=== PATIENT | female | born 1970 | race Caucasian/White ===

== ENCOUNTER 2017-02-17 08:24 | Emergency (ER) | payer OTHER ==
--- NOTE | 2017-02-17 10:21 | DIAGNOSTIC IMAGING REPORT ---
PROCEDURE: CT ABDOMEN/PELVIS W/O CONTRAST INDICATION: Left flank pain. TECHNIQUE: Noncontrast axial images were obtained of the entire abdomen and pelvis with sagittal and coronal reformations. COMPARISON: None. FINDINGS: ABDOMEN: Lung base are clear. Heart size is normal. 2 mm low left pelvic calcification with mild left hydroureteronephrosis suggestive of a distal left ureteral calculus, 1 cm proximal to the UVJ. There is a punctate nonobstructing right renal calculus. 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 Liver, gallbladder, pancreas, spleen (splenule) and adrenal glands are normal. Minor atherosclerosis of the aorta. Nonspecific bowel gas pattern. PELVIS: Normal appendix. 3.0 cm left ovarian cyst. Uterus and bladder are unremarkable. No free fluid. Mild degenerative changes of the spine. IMPRESSION: 1. 2 mm low left pelvic calcification suggestive of a distal ureteral calculus with mild left hydroureteronephrosis 2. Nonobstructing right renal calculus 3. 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 3 cm left ovarian cyst. 5. Results discussed with Dr. Guzman All CT scans at this facility use dose modulation, iterative reconstruction, and/or weight-based dosing when appropriate to reduce radiation dose to as low as reasonably achievable.
--- NOTE | 2017-02-17 10:53 | ED ORDER SUMMARY ---
..... Patient: GURPREET MARTIN OrderSheet [facility] VisitID: [id number] Eduardo Fernandez [place], [place] [id number] 47y, F Registration Date/Time: 02/17/2017 ORDER SHEET Weight: 122.4 kg (stated) Allergies: ASA= "BRUISING", Sulfa Drugs GENERAL ORDERS: CBC w Diff Urgent (08:43 02/17/2017 Hetal JOHNSON) (Ack 8:44 KHoerner) (9:09 JSimbeck R.N.) CMP Urgent (08:02/17/2017 Hetal JOHNSON) (Ack 8:44 YASIRoerner) (9:09 JSimbeck R.N.) UA-Culture if indicated Urgent (:02/17/2017 Hetal JOHNSON) (Ack 8:44 YASIRoerner) (9:09 JSimbeck R.N.) Urine Urgent (08:02/17/2017 eHtal JOHNSON) (Ack 8:44 KHoerner) (9:09 JSimbeck R.N.) Lipase Urgent (08:02/17/2017 Hetal JOHNSON) (Ack 8:44 KHoerner) (9:09 JSimbeck R.N.) Amylase Urgent (08:02/17/2017 Hetal JOHNSON) (Ack 8:44 KHoerner) (9:09 JSimbeck R.N.) US Pelvic Complete w Transvag Urgent (09:19 02/17/2017 Debra Dick) (Ack 9:22 YASIRoerner) (Cancelled: Change in patient condition9:40 Debra Dick) CT Abd/Pel wo Cont Urgent (09:40 02/17/2017 Debra Dick) (Ack 9:46 YASIRoeelizaner) (10:41 JSimbeck R.N.) MEDICATION ORDERS: IV FLUIDS: IV NS : initial bolus 1000 mL (1000 mL/hr), then none - (NOW) (08:43 02/17/2017 eHtal JOHNSON) (Ack 8:49 Luly R.N.) (9:10 JSimbeck R.N.) Dilaudid IV 1 mg (HIGH ALERT MEDICATION, NOW) (08:43 02/17/2017 Hetal JOHNSON) (Ack 8:49 Luly R.N.) (9:11 Kimberly Griggs.N.) Toradol IV 30 mg (NOW) (08:43 02/17/2017 Hetal JOHNSON) (Ack 8:49 Luly Griggs.N.) (9:11 Kimberly Griggs.N.) ORDER SHEET NOTES: [Electronically signed by Theron Caballero R.N. (11:36 02/17/2017)] [Electronically signed by Cecil Guzman Dr. (07:07 02/19/2017)] [Electronically locked/signed by Theron Caballero R.N. (11:36 02/17/2017)]
--- NOTE | 2017-02-17 10:53 | ED NURSING NOTES ---
Clinical Report - Nurses [facility] [address] [place] [address] 02/17/2017 8:26 [id number] Triage time 08:33. Acuity: LEVEL 3. Chief Complaint: ABDOMINAL PAIN. Alert. No acute distress. HECTOR COMA SCORE: [place] Coma Scale: 15- eyes open spontaneously (4); best verbal response- oriented x 4 (5); best motor response- obeys commands (6). --08:41 Linette Coronado R.N. 08:02/17/17. BP: 154/88 (large adult cuff) taken on the left arm, while sitting. HR: 73. RR: 18. O2 saturation: 97% on room air. Temp: 98 F. Pain level now: 04/23. --08:41 Linette Coronado R.N. <<STRICKEN ENTRY-- 08:33 02/17/17. BP: 154/88. HR: 73. RR: 18. O2 saturation: 97% on room air. Temp: 98 F. Pain level now: 04/23. --08:41 Linette Coronado R.N. --END STRIKE>> Correction. --10:45 Theron Caballero R.N. Weight: 122.4 kg stated. Height/Length: 65 inches Per Patient. BMI: 45. --08:39 Linette Coronado R.N. Medications ALPRAZolam Oral 0.5 mg, 3x a day as needed. Amerge Oral (Tablet 2.5 mg) 1 tablet, may repeat in 4 hours x 1 as needed. --08:38 Linette Coronado R.N. Atenolol 50mg daily. Cyclobenzaprine HCl Oral (Tablet 10 mg) 1 tablet, as needed. Depakote Oral 250 mg, 2x a day. Diclofenac Oral 75mg BID. FLUoxetine HCl Oral 20 mg- 2 tabs daily . Hydrocodone-Acetaminophen Oral 7.5 mg, 4x a day. Levothyroxine Sodium Oral 100 mcg, daily. Lidoderm External 1 patch on left elbow every 12 hours , as needed. Meloxicam Oral (Tablet 15 mg) 1 tablet, as needed. Omeprazole Oral 20 mg, daily. ProAir HFA Inhalation 2 puffs, 4x a day. Prozac Oral 40mg daily. Relpax Oral (Tablet 40 mg) 1 tablet, repeat in 2 hours if needed . Simvastatin Oral (Tablet 20 mg) 1 tablet, at bedtime. Thyroxine . --08:38 Linette Coronado R.N. Topamax Oral 100 mg, 2x a day. --08:38 Linette Coronado R.N. Claritin Oral. --08:39 Linette Coronado R.N. Medication/allergy information source: the patient. --08:41 Linette Coronado R.N. Allergies ASA= "BRUISING". Sulfa Drugs.(vomiting) --08:38 Linette Coronado R.N. History Arrived by private vehicle. Historian: patient. Accompanied by family. Primary physician (Baldemar). This started today. Onset. (@0430). Describes the quality as "pain" and ( intermittent). Relates location as in the left lower quadrant and left side of the back. Treatment CHANNEL DEVELOPMENT MANAGER: (Vicodin @0430). PAST MEDICAL HX: Last normal menstrual period- November 2016. SOCIAL HX: Light tobacco smoker- less than 1/2 a pack per day. Occasional alcohol use. History of occasional drug use: marijuana. FALL RISK ASSESSMENT: Fall risk assessment completed. No fall risk identified. FUNCTIONAL ASSESSMENT: Functional assessment: no impairments noted. LEARNING NEEDS ASSESSMENT: The learning needs assessment revealed no barriers. --08:41 Linette Coronado R.N. PROBLEMS: Animal Bite. Dental Abscess. Abscess. Arthritis. Degenerative Joint Disease. Depression. Fibromyalgia. Hypertension. Migraine Headache. --08:36 Linette Coronado R.N. ADDITIONAL SURGERIES: Dilatation & Curettage. --08:36 Linette Coronado R.N. Assessment GENERAL / NEURO / PSYCH: Alert. Oriented X 4. Appears in no acute distress. Patient appears calm and cooperative. RESPIRATORY: Respirations not labored. SKIN: Skin is warm and dry. --08:41 Linette Coronado R.N. Interventions ID and allergy band on patient. To treatment room. --08:41 Linette Coronado R.N. PHYSICAL ASSESSMENT late entry -08:40. To room via wheelchair. GENERAL / NEURO / PSYCH: Alert. Oriented X 4. Appears in pain. HEENT: Mucous membranes are pink. RESPIRATORY: Respirations not labored. Breath sounds within normal limits. CVS: Capillary refill less than 2 seconds. GI / : Obesity. Abdomen soft. Abdominal tenderness (LLQ and radiates to her left low back). Bowel sounds within normal limits. No emesis noted. SKIN: Skin is warm and dry. --09:14 Theron Caballero R.N. NURSING PROGRESS NOTES 08:55 02/17/2017 Site #1 started via IV in the right hand with an 20g angiocath, with aseptic technique and good blood return; one attempt. Blood drawn: rainbow set. Labeled in the presence of the patient and sent to the lab. Saline lock flushed with 10 mL saline. --09:09 Theron Caballero R.N. 08:58 02/17/2017 Started bag #1 1000 mL IV Fluids IV NS (Saline); bolus of 1000 mL over 45 minute(s) via site #1. Allergies verified and confirmed 5 rights. IV patency established site checked: no pain, redness, or swelling flushed thoroughly pre- and post-medication administration. --09:10 Theron Caballero R.N. 08:58 02/17/2017 Toradol IVP 30 mg given over 1 minute(s) via site #1. Allergies verified and confirmed 5 rights. IV patency established. IV site checked: no pain, redness, or swelling. IV flushed thoroughly pre- and post-medication administration. IVP given by RN. --09:11 Theron Caballero R.N. 09:05 02/17/2017 Dilaudid (HYDROmorphone HCl PF) IVP 1 mg given over 1 minute(s) via site #1. Allergies verified, confirmed 5 rights and sedative warning given to the patient. IV patency established. IV site checked: no pain, redness, or swelling. IV flushed thoroughly pre- and post-medication administration. IVP given by RN. --09:11 Theron Caballero R.N. late entry -08:40. Patient gowned. Head of bed elevated. Reassurance given. Two patient identifiers checked. Call light placed in reach. Bed placed in lowest position. Brakes of bed on. Patient ready for evaluation- chart flagged. ( inspector hot forgings at the bedside). --09:14 Theron Caballero R.N. Head of bed elevated. Reassurance given. Call light placed in reach. Bed placed in lowest position. Brakes of bed on. --10:09 Theron Caballero R.N. 10:07 02/17/17. BP: 118/63. HR: 73. RR: 20. O2 saturation: 95% on room air. Pain level now: 03/23. --10:09 Theron Caballero R.N. 09:40 02/17/2017 Toradol IVP Response: no adverse reaction pain is improving. --10:40 Theron Caballero R.N. 09:40 02/17/2017 Dilaudid IVP Response: no adverse reaction pain is improving. --10:40 Theron Caballero R.N. 09:50 02/17/2017 IV Fluids IV NS Discontinued: bag #1 completed. Total amount infused: 1000 mL. IV patency established. IV site checked: no pain, redness, or swelling. IV flushed thoroughly. --10:40 Theron Caballero R.N. 10:30 02/17/17. BP: 121/57. HR: 73. RR: 20. O2 saturation: 95% on room air. --10:45 Theron Caballero R.N. DISPOSITION / DISCHARGE 11:05 02/17/2017 Site #1 removed upon discharge. Bandage applied. --11:09 Theron Caballero R.N. <<KYLEEKEN ENTRY-- Departure time: 1009. Condition at departure: improved and stable. No learning barriers present. Discharge instructions provided and reviewed with the patient. Reviewed warnings. Reviewed medication(s). Patient verbalized understanding. Written instructions provided in Chinese. The patient was discharged by the physician. She was discharged home and accompanied by inspector hot forgings. She left the Emergency Department ambulatory and via private vehicle. Solar Panel Installer driving. --11:09 Theron Caballero R.N. --END STRIKE>> Correction --11:10 Theron Caballero R.N. 11:07 02/17/17. BP: 123/61. HR: 73. RR: 20. O2 saturation: 95% on room air. Temp: 98 F (oral). Pain level now: 01/21. --11:09 Theron Caballero R.N. Departure time: 1109. Condition at departure: improved and stable. No learning barriers present. Discharge instructions provided and reviewed with the patient. Reviewed warnings. Reviewed medication(s). Patient verbalized understanding. Written instructions provided in Chinese. The patient was discharged by the physician. She was discharged home and accompanied by inspector hot forgings. She left the Emergency Department ambulatory and via private vehicle. Solar Panel Installer driving. --11:11 Theron Caballero R.N. Locked/Released at 02/17/2017 11:36 by Theron Caballero R.N.
--- NOTE | 2017-02-17 10:53 | ED NURSING NOTES ---
Clinical Report - Nurses [facility] [address] [place] [address] 02/17/2017 8:26 [id number] Triage time 08:33. Acuity: LEVEL 3. Chief Complaint: ABDOMINAL PAIN. Alert. No acute distress. HECTOR COMA SCORE: [place] Coma Scale: 15- eyes open spontaneously (4); best verbal response- oriented x 4 (5); best motor response- obeys commands (6). --08:41 Linette Coronado R.N. 08:02/17/17. BP: 154/88 (large adult cuff) taken on the left arm, while sitting. HR: 73. RR: 18. O2 saturation: 97% on room air. Temp: 98 F. Pain level now: 04/23. --08:41 Linette Coronado R.N. <<STRICKEN ENTRY-- 08:33 02/17/17. BP: 154/88. HR: 73. RR: 18. O2 saturation: 97% on room air. Temp: 98 F. Pain level now: 04/23. --08:41 Linette Coronado R.N. --END STRIKE>> Correction. --10:45 Theron Caballero R.N. Weight: 122.4 kg stated. Height/Length: 65 inches Per Patient. BMI: 45. --08:39 Linette Coronado R.N. Medications ALPRAZolam Oral 0.5 mg, 3x a day as needed. Amerge Oral (Tablet 2.5 mg) 1 tablet, may repeat in 4 hours x 1 as needed. --08:38 Linette Coronado R.N. Atenolol 50mg daily. Cyclobenzaprine HCl Oral (Tablet 10 mg) 1 tablet, as needed. Depakote Oral 250 mg, 2x a day. Diclofenac Oral 75mg BID. FLUoxetine HCl Oral 20 mg- 2 tabs daily . Hydrocodone-Acetaminophen Oral 7.5 mg, 4x a day. Levothyroxine Sodium Oral 100 mcg, daily. Lidoderm External 1 patch on left elbow every 12 hours , as needed. Meloxicam Oral (Tablet 15 mg) 1 tablet, as needed. Omeprazole Oral 20 mg, daily. ProAir HFA Inhalation 2 puffs, 4x a day. Prozac Oral 40mg daily. Relpax Oral (Tablet 40 mg) 1 tablet, repeat in 2 hours if needed . Simvastatin Oral (Tablet 20 mg) 1 tablet, at bedtime. Thyroxine . --08:38 Linette Coronado R.N. Topamax Oral 100 mg, 2x a day. --08:38 Linette Coronado R.N. Claritin Oral. --08:39 Linette Coronado R.N. Medication/allergy information source: the patient. --08:41 Linette Coronado R.N. Allergies ASA= "BRUISING". Sulfa Drugs.(vomiting) --08:38 Linette Coronado R.N. History Arrived by private vehicle. Historian: patient. Accompanied by family. Primary physician (Baldemar). This started today. Onset. (@0430). Describes the quality as "pain" and ( intermittent). Relates location as in the left lower quadrant and left side of the back. Treatment VOLLEYBALL COMMENTATOR: (Vicodin @0430). PAST MEDICAL HX: Last normal menstrual period- November 2016. SOCIAL HX: Light tobacco smoker- less than 1/2 a pack per day. Occasional alcohol use. History of occasional drug use: marijuana. FALL RISK ASSESSMENT: Fall risk assessment completed. No fall risk identified. FUNCTIONAL ASSESSMENT: Functional assessment: no impairments noted. LEARNING NEEDS ASSESSMENT: The learning needs assessment revealed no barriers. --08:41 Linette Coronado R.N. PROBLEMS: Animal Bite. Dental Abscess. Abscess. Arthritis. Degenerative Joint Disease. Depression. Fibromyalgia. Hypertension. Migraine Headache. --08:36 Linette Coronado R.N. ADDITIONAL SURGERIES: Dilatation & Curettage. --08:36 Linette Coronado R.N. Assessment GENERAL / NEURO / PSYCH: Alert. Oriented X 4. Appears in no acute distress. Patient appears calm and cooperative. RESPIRATORY: Respirations not labored. SKIN: Skin is warm and dry. --08:41 Linette Coronado R.N. Interventions ID and allergy band on patient. To treatment room. --08:41 Linette Coronado R.N. PHYSICAL ASSESSMENT late entry -08:40. To room via wheelchair. GENERAL / NEURO / PSYCH: Alert. Oriented X 4. Appears in pain. HEENT: Mucous membranes are pink. RESPIRATORY: Respirations not labored. Breath sounds within normal limits. CVS: Capillary refill less than 2 seconds. GI / : Obesity. Abdomen soft. Abdominal tenderness (LLQ and radiates to her left low back). Bowel sounds within normal limits. No emesis noted. SKIN: Skin is warm and dry. --09:14 Theron Caballero R.N. NURSING PROGRESS NOTES 08:55 02/17/2017 Site #1 started via IV in the right hand with an 20g angiocath, with aseptic technique and good blood return; one attempt. Blood drawn: rainbow set. Labeled in the presence of the patient and sent to the lab. Saline lock flushed with 10 mL saline. --09:09 Theron Caballero R.N. 08:58 02/17/2017 Started bag #1 1000 mL IV Fluids IV NS (Saline); bolus of 1000 mL over 45 minute(s) via site #1. Allergies verified and confirmed 5 rights. IV patency established site checked: no pain, redness, or swelling flushed thoroughly pre- and post-medication administration. --09:10 Theron Caballero R.N. 08:58 02/17/2017 Toradol IVP 30 mg given over 1 minute(s) via site #1. Allergies verified and confirmed 5 rights. IV patency established. IV site checked: no pain, redness, or swelling. IV flushed thoroughly pre- and post-medication administration. IVP given by RN. --09:11 Theron Caballero R.N. 09:05 02/17/2017 Dilaudid (HYDROmorphone HCl PF) IVP 1 mg given over 1 minute(s) via site #1. Allergies verified, confirmed 5 rights and sedative warning given to the patient. IV patency established. IV site checked: no pain, redness, or swelling. IV flushed thoroughly pre- and post-medication administration. IVP given by RN. --09:11 Theron Caballero R.N. late entry -08:40. Patient gowned. Head of bed elevated. Reassurance given. Two patient identifiers checked. Call light placed in reach. Bed placed in lowest position. Brakes of bed on. Patient ready for evaluation- chart flagged. ( underwriting analyst at the bedside). --09:14 Theron Caballero R.N. Head of bed elevated. Reassurance given. Call light placed in reach. Bed placed in lowest position. Brakes of bed on. --10:09 Theron Caballero R.N. 10:07 02/17/17. BP: 118/63. HR: 73. RR: 20. O2 saturation: 95% on room air. Pain level now: 03/23. --10:09 Theron Caballero R.N. 09:40 02/17/2017 Toradol IVP Response: no adverse reaction pain is improving. --10:40 Theron Caballero R.N. 09:40 02/17/2017 Dilaudid IVP Response: no adverse reaction pain is improving. --10:40 Theron Caballero R.N. 09:50 02/17/2017 IV Fluids IV NS Discontinued: bag #1 completed. Total amount infused: 1000 mL. IV patency established. IV site checked: no pain, redness, or swelling. IV flushed thoroughly. --10:40 Theron Caballero R.N. 10:30 02/17/17. BP: 121/57. HR: 73. RR: 20. O2 saturation: 95% on room air. --10:45 Theron Caballero R.N. DISPOSITION / DISCHARGE 11:05 02/17/2017 Site #1 removed upon discharge. Bandage applied. --11:09 Theron Caballero R.N. <<KYLEEKEN ENTRY-- Departure time: 1009. Condition at departure: improved and stable. No learning barriers present. Discharge instructions provided and reviewed with the patient. Reviewed warnings. Reviewed medication(s). Patient verbalized understanding. Written instructions provided in Indian. The patient was discharged by the physician. She was discharged home and accompanied by underwriting analyst. She left the Emergency Department ambulatory and via private vehicle. Candy Packer driving. --11:09 Theron Caballero R.N. --END STRIKE>> Correction --11:10 Theron Caballero R.N. 11:07 02/17/17. BP: 123/61. HR: 73. RR: 20. O2 saturation: 95% on room air. Temp: 98 F (oral). Pain level now: 01/21. --11:09 Theron Caballero R.N. Departure time: 1109. Condition at departure: improved and stable. No learning barriers present. Discharge instructions provided and reviewed with the patient. Reviewed warnings. Reviewed medication(s). Patient verbalized understanding. Written instructions provided in Indian. The patient was discharged by the physician. She was discharged home and accompanied by underwriting analyst. She left the Emergency Department ambulatory and via private vehicle. Candy Packer driving. --11:11 Theron Caballero R.N. Locked/Released at 02/17/2017 11:36 by Theron Caballero R.N.
--- NOTE | 2017-02-17 10:53 | ED CLINICAL REPORT ---
Clinical Report - Physicians/Mid Levels Formerly [facility] [address] [place] [address] 02/17/2017 8:26 Patient: GURPREET MARTIN Time Seen: 0840. Arrived- By private vehicle. Historian- patient. HISTORY OF PRESENT ILLNESS Chief Complaint: ABDOMINAL PAIN. This started today and is still present. It was gradual in onset and has been constant but is not gone now. At its maximum, severity described as 9 / 10. When seen in the E.D., severity described as 9 / 10. Modifying factors- (better with stretching the area. does not know what makes it worse). It is described as cramping. No radiation. It is described as located in the left pelvis. No nausea, loss of appetite, vomiting or diarrhea. No additional abdominal pain. (+urinary frequency. states "it feels like a miscarriage"). No recent travel. Similar symptoms previously: None. Recent medical care: Not seen at this facility. REVIEW OF SYSTEMS No fever. All systems otherwise negative, except as recorded above. PAST HISTORY See nurses notes. Medications: Claritin Oral. Topamax Oral 100 mg, 2x a day. Atenolol 50mg daily. Cyclobenzaprine HCl Oral (Tablet 10 mg) 1 tablet, as needed. Depakote Oral 250 mg, 2x a day. Diclofenac Oral 75mg BID. FLUoxetine HCl Oral 20 mg- 2 tabs daily . Hydrocodone-Acetaminophen Oral 7.5 mg, 4x a day. Levothyroxine Sodium Oral 100 mcg, daily. Lidoderm External 1 patch on left elbow every 12 hours , as needed. Meloxicam Oral (Tablet 15 mg) 1 tablet, as needed. Omeprazole Oral 20 mg, daily. ProAir HFA Inhalation 2 puffs, 4x a day. Prozac Oral 40mg daily. Relpax Oral (Tablet 40 mg) 1 tablet, repeat in 2 hours if needed . Simvastatin Oral (Tablet 20 mg) 1 tablet, at bedtime. Thyroxine . ALPRAZolam Oral 0.5 mg, 3x a day as needed. Amerge Oral (Tablet 2.5 mg) 1 tablet, may repeat in 4 hours x 1 as needed. Allergies: ASA= "BRUISING". Sulfa Drugs.(vomiting). SOCIAL HISTORY Smoker- current status unknown. Alcohol use. History of drug use: marijuana. No recent travel. Is a local resident. ADDITIONAL NOTES The nursing notes have been reviewed. PHYSICAL EXAM Vital Signs: 02/17/2017 08:33 BP: 154/88. HR: 73. RR: 18. O2 saturation: 97%. Temp: 98 F. Pain level now: 9/10. Blood pressure normal. Oxygen saturation normal. Appearance: Alert. Oriented X3. No acute distress. Eyes: Pupils equal, round and reactive to light. Eyes normal inspection. ENT: Ears normal. Nose normal. Pharynx normal. Neck: Normal inspection. Neck supple. CVS: Normal heart rate and rhythm. Heart sounds normal. Pulses normal. Respiratory: No respiratory distress. Breath sounds normal. Chest nontender. No rales, rhonchi or wheezes. Abdomen: Soft and nontender. Bowel sounds normal. Skin: Skin warm and dry. Normal skin color. No rash. Normal skin turgor. Extremities: Extremities exhibit normal ROM. No lower extremity edema. LABS, X-RAYS, AND EKG Abdominal CT: PROCEDURE: CT ABDOMEN/PELVIS W/O CONTRAST INDICATION: Left flank pain. TECHNIQUE: Noncontrast axial images were obtained of the entire abdomen and pelvis with sagittal and coronal reformations. COMPARISON: None. FINDINGS: ABDOMEN: Lung base are clear. Heart size is normal. 2 mm low left pelvic calcification with mild left hydroureteronephrosis suggestive of a distal left ureteral calculus, 1 cm proximal to the UVJ. There is a punctate nonobstructing right renal calculus. A 4 mm mid right renal low-density lesion, possibly a tiny angiomyolipoma. Liver, gallbladder, pancreas, spleen (splenule) and adrenal glands are normal. Minor atherosclerosis of the aorta. Nonspecific bowel gas pattern. PELVIS: Normal appendix. 3.0 cm left ovarian cyst. Uterus and bladder are unremarkable. No free fluid. Mild degenerative changes of the spine. IMPRESSION: 1. 2 mm low left pelvic calcification suggestive of a distal ureteral calculus with mild left hydroureteronephrosis 2. Nonobstructing right renal calculus 3. 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 3 cm left ovarian cyst. The study was independently viewed by me and interpreted by the radiologist. The study was discussed with the radiologist (via phone and pacs). Laboratory Tests: UA-Culture if indicated: (TAMMY: 02/17/2017 08:55) ( [facility] [place] 02/17/2017 09:33) Final results Test Result Flag Units (Reference) URINE COLOR YELLOW URINE APPEARANCE CLOUDY URINE GLUCOSE NEGATIVE (NEGATIVE) URINE BILIRUBIN NEGATIVE (NEGATIVE) URINE KETONE NEGATIVE (NEGATIVE) URINE SPECIFIC GRAVITY >= 1.030 (1.010-1.030) URINE PH 5.5 (5.0-8.0) URINE PROTEIN NEGATIVE (NEGATIVE) URINE UROBILINOGEN 1.0 EU/dL (0.2-1.0) URINE NITRITE NEGATIVE (NEGATIVE) URINE BLOOD 3+ (NEGATIVE) URINE LEUK ESTERASE NEGATIVE (NEGATIVE) URINE RBC >100 rbc/hpf (0-1) URINE WBC 1-3 wbc/hpf (0-1) URINE EPITHELIAL CELLS 3-5 EPI/hpf (0-5) URINE BACTERIA NONE SEEN (NONE SEEN) URINE COMMENT CULT NOT INDICATED 1+ AMORPHOUS URATESURINE CULTURES ARE SET-UP BASED ON THE FOLLOWING CRITERIA:POSITIVE NITRITEPOSITIVE LEUKOCYTE ESTERASEGREATER THAN 10 WHITE BLOOD CELLSMODERATE (2+) OR GREATER BACTERIA Urine: (TAMMY: 02/17/2017 08:55) ( [facility] [place] 02/17/2017 09:23) Final results Test Result Flag Units (Reference) URINE NEGATIVE CBC w Diff: (TAMMY: 02/17/2017 08:55) ( [facility] [place] 02/17/2017 09:21) Final results Test Result Flag Units (Reference) WHITE BLOOD COUNT 13.6 H K/uL (4.5-11.5) RED BLOOD COUNT 4.86 M/uL (4.00-5.20) HEMOGLOBIN 14.9 gm/dL (12.0-16.0) HEMATOCRIT 44.3 % (36.0-46.0) MEAN CELL VOLUME 91 fL (80-100) MEAN CORPUSCULAR HGB 31 pg (26-34) MEAN CORPUSCULAR HGB CONC 34 g/dL (31-37) RED CELL DISTRIBUTION WIDTH 13.2 % (11.6-14.8) PLATELET COUNT 181 K/uL (150-400) NEUTROPHIL % 77.6 H % (50-75) LYMPH % 15.5 L % (25-40) MONO % 5.5 % (3-14) EOSINOPHIL % 1.0 % (0-4) BASOPHIL % 0.4 % (0-2) . PROGRESS AND PROCEDURES Course of Care: The patient is a 47-year-old female presenting for evaluation of left lower quadrant abdominal pain. The patient states that this is exactly like her past abortions. Patient will be evaluated with a ultrasound and laboratory studies. Patient is agreeable to the treatment plan. While patient here in the emergency department her urinalysis was noted to have greater than 100 red blood cells. Had a discussion with the patient in regards to possibility of the red blood cells. Patient states that she is not currently on her menstrual cycle. Because of the location and distribution of her pain, this time the likely hernandez of a kidney stone causing her symptoms became the more likely diagnosis. Discussed with the patient having the ultrasound and a CT scan versus a CT scan alone. Patient states that she will have a CT scan alone. Patient's workup was remarkable for the findings above. Patient with a 2 mm distal ureteral kidney stone. Patient with improved symptoms while here in the emergency department. Patient is a stable outpatient candidate. Source of pain has been identified. Had discussion with the patient in regards to her workup here in the emergency department including diagnosis, home care, follow-up, and return precautions. All questions have been answered. The patient expressed understanding of these instructions and was agreeable to them. Disposition: Discharged. Condition: good. CLINICAL IMPRESSION Acute left lower quadrant abdominal pain. 02/17/2017 10:30 BP: 121/57. HR: 73. RR: 20. O2 saturation: 95%. Gross hematuria (acute). Blood pressure normal. Oxygen saturation normal. Left renal colic in the left ureter with hydronephrosis. INSTRUCTIONS Warnings: GENERAL WARNINGS: Return or contact your physician immediately if your condition worsens or changes unexpectedly, if not improving as expected, or if other problems arise. SPECIFICALLY, return if you develop pain, fever, vomiting, the inability to keep fluids down, blood in vomitus, blood in diarrhea, fainting or lightheadedness. Your Current Medications: CONTINUE TAKING THE FOLLOWING MEDICATIONS: ALPRAZolam Oral : 0.5 mg 3x a day, prn. Amerge Oral : Tablet 2.5 mg, 1 tablet may repeat in 4 hours x 1, prn. Atenolol : 50mg daily. Claritin Oral. Cyclobenzaprine HCl Oral : Tablet 10 mg, 1 tablet, prn. Depakote Oral : 250 mg 2x a day. Diclofenac Oral : 75mg BID. FLUoxetine HCl Oral : 20 mg- 2 tabs daily. Hydrocodone-Acetaminophen Oral : 7.5 mg 4x a day. Levothyroxine Sodium Oral : 100 mcg daily. Lidoderm External : 1 patch on left elbow every 12 hours, prn. Meloxicam Oral : Tablet 15 mg, 1 tablet, prn. Omeprazole Oral : 20 mg daily. ProAir HFA Inhalation : 2 puffs 4x a day. Prozac Oral : 40mg daily. Relpax Oral : Tablet 40 mg, 1 tablet repeat in 2 hours if needed. Simvastatin Oral : Tablet 20 mg, 1 tablet at bedtime. Thyroxine *. Topamax Oral : 100 mg 2x a day. Prescription Medications: Zofran (orally disintegrating tablets) 4 mg: take 1 orally every 8 hours as needed for nausea and vomiting. Dispense ten (10). No refill. Substitution is permissible. Follow-up: Return to the emergency department as needed. Follow up with your doctor in three days. Reason for referral: recheck today's concerns. Summary of care provided to patient via paper. Screening today revealed the patient's blood pressure to be in the normal range. The patient should follow up with a primary care provider for blood pressure management. Understanding of the discharge instructions verbalized by patient. Follow-up with: Med Xiao MD, Urology, , [address] [place] [address], , [place], [address] Follow up in one week. Reason for referral: recheck today's concerns. Summary of care provided to patient via paper. (Electronically signed by Cecil Guzman Dr. 02/19/2017 7:07)
--- NOTE | 2017-02-17 10:53 | ED ORDER SUMMARY ---
..... Patient: GURPREET MARTIN OrderSheet [facility] VisitID: [id number] Eduardo Fernandez [place], [place] [id number] 47y, F Registration Date/Time: 02/17/2017 ORDER SHEET Weight: 122.4 kg (stated) Allergies: ASA= "BRUISING", Sulfa Drugs GENERAL ORDERS: CBC w Diff Urgent (08:43 02/17/2017 Hetal JOHNSON) (Ack 8:44 KHoerner) (9:09 JSimbeck R.N.) CMP Urgent (08:02/17/2017 Hetal JOHNSON) (Ack 8:44 YASIRoerner) (9:09 JSimbeck R.N.) UA-Culture if indicated Urgent (:02/17/2017 Hetal JOHNSON) (Ack 8:44 YASIRoerner) (9:09 JSimbeck R.N.) Urine Urgent (08:02/17/2017 Hetal JOHNSON) (Ack 8:44 KHoerner) (9:09 JSimbeck R.N.) Lipase Urgent (08:02/17/2017 Hetal JOHNSON) (Ack 8:44 KHoerner) (9:09 JSimbeck R.N.) Amylase Urgent (08:02/17/2017 Hetal JOHNSON) (Ack 8:44 KHoerner) (9:09 JSimbeck R.N.) US Pelvic Complete w Transvag Urgent (09:19 02/17/2017 Debra Dick) (Ack 9:22 YASIRoerner) (Cancelled: Change in patient condition9:40 Debar Dick) CT Abd/Pel wo Cont Urgent (09:40 02/17/2017 Debra Dick) (Ack 9:46 YASIRoeelizaner) (10:41 JSimbeck R.N.) MEDICATION ORDERS: IV FLUIDS: IV NS : initial bolus 1000 mL (1000 mL/hr), then none - (NOW) (08:43 02/17/2017 Hetal JOHNSON) (Ack 8:49 Luly R.N.) (9:10 JSimbeck R.N.) Dilaudid IV 1 mg (HIGH ALERT MEDICATION, NOW) (08:43 02/17/2017 Hetal JOHNSON) (Ack 8:49 Luly R.N.) (9:11 Kimberly Griggs.N.) Toradol IV 30 mg (NOW) (08:43 02/17/2017 Hetal JOHNSON) (Ack 8:49 Luly Griggs.N.) (9:11 Kimberly Griggs.N.) ORDER SHEET NOTES: [Electronically signed by Theron Caballero R.N. (11:36 02/17/2017)] [Electronically signed by Cecil Guzman Dr. (07:07 02/19/2017)] [Electronically locked/signed by Theron Caballero R.N. (11:36 02/17/2017)]
--- NOTE | 2017-02-19 07:07 | ED MAR SUMMARY ---
..... Medication Administration Record [facility] [address] [place] [address] Patient: GURPREET MARTIN Visit ID: [id number] 47y, F Weight: 122.4 kg Height/Length: 65 in BMI: 45 ALLERGIES: ASA= "BRUISING", Sulfa Drugs Start 08:58 02/17/2017 Theron Caballero R.N., Stop 09:50 02/17/2017 Theron Caballero R.N. Medication Administered: IV NS (SALINE), Dose: IV Fluids, Bolus: 1000 mL over 45 minute(s), Dispensed: 1000 mL bag, Site: #1 right hand. Medication Ordered: IV NS : initial bolus 1000 mL (1000 mL/hr), then none - (NOW). Given 08:58 02/17/2017 Theron Caballero R.N. Medication Administered: TORADOL [IVP], Dose: 30 mg IVP over 1 minute(s), Site: #1 right hand. Medication Ordered: Toradol IV 30 mg (NOW). Given 09:05 02/17/2017 Theron Caballero R.N. Medication Administered: DILAUDID [IVP] (HYDROMORPHONE HCL PF), Dose: 1 mg IVP over 1 minute(s), Site: #1 right hand. Medication Ordered: Dilaudid IV 1 mg (HIGH ALERT MEDICATION, NOW).
--- NOTE | 2017-02-19 07:07 | ED MED RECONCILIATION SUMMARY ---
Patient: GURPREET MARTIN Medication Reconciliation Report [facility] VisitID: [id number] [address] [place] [address] 47y, F Registration Date/Time: 02/17/2017 Weight: 122.4 kg Height/Length: 65 in. BMI: 45.0 ALLERGIES: ASA= "BRUISING", Sulfa Drugs The patient's Home Medications are listed below: CONTINUE TAKING THE FOLLOWING MEDICATIONS: ALPRAZolam Oral 0.5 mg, 3x a day Amerge Oral (2.5 mg) 1 tablet, may repeat in 4 hours x 1 Atenolol 50mg daily Claritin Oral Cyclobenzaprine HCl Oral (10 mg) 1 tablet Depakote Oral 250 mg, 2x a day Diclofenac Oral 75mg BID FLUoxetine HCl Oral 20 mg- 2 tabs daily Hydrocodone-Acetaminophen Oral 7.5 mg, 4x a day Levothyroxine Sodium Oral 100 mcg, daily Lidoderm External 1 patch on left elbow every 12 hours Meloxicam Oral (15 mg) 1 tablet Omeprazole Oral 20 mg, daily ProAir HFA Inhalation 2 puffs, 4x a day Prozac Oral 40mg daily Relpax Oral (40 mg) 1 tablet, repeat in 2 hours if needed Simvastatin Oral (20 mg) 1 tablet, at bedtime Thyroxine Topamax Oral 100 mg, 2x a day The source(s) of the original Home Medication information: patient The following Medications were given to the patient in the Emergency Department: IV NS IV Fluids bolus 1000 mL over 45 minute(s), administered: 02/17/2017 8:58:00 AM Toradol [IVP] IVP 30 mg, administered: 02/17/2017 8:58:00 AM Dilaudid [IVP] IVP 1 mg, administered: 02/17/2017 9:05:00 AM The following Medications were prescribed to the patient: Zofran (orally disintegrating tablets) 4 mg: take 1 orally every 8 hours as needed for nausea and vomiting. Dispense ten (10). No refill. Substitution is permissible. -- Cecil Guzman Dr.
--- NOTE | 2017-02-19 07:07 | ED DISCHARGE INSTRUCTIONS ---
Patient: GURPREET MARTIN General Instructions [facility] VisitID: [id number] [place] [address] 47y, F Registration Date/Time: 02/17/2017 Acute left lower quadrant abdominal pain. 02/17/2017 10:30 BP: 121/57. HR: 73. RR: 20. O2 saturation: 95%. Gross hematuria (acute). Blood pressure normal. Oxygen saturation normal. Left renal colic in the left ureter with hydronephrosis. INSTRUCTIONS Warnings: GENERAL WARNINGS: Return or contact your physician immediately if your condition worsens or changes unexpectedly, if not improving as expected, or if other problems arise. SPECIFICALLY, return if you develop pain, fever, vomiting, the inability to keep fluids down, blood in vomitus, blood in diarrhea, fainting or lightheadedness. Your Current Medications: CONTINUE TAKING THE FOLLOWING MEDICATIONS: ALPRAZolam Oral : 0.5 mg 3x a day, prn. Amerge Oral : Tablet 2.5 mg, 1 tablet may repeat in 4 hours x 1, prn. Atenolol : 50mg daily. Claritin Oral. Cyclobenzaprine HCl Oral : Tablet 10 mg, 1 tablet, prn. Depakote Oral : 250 mg 2x a day. Diclofenac Oral : 75mg BID. FLUoxetine HCl Oral : 20 mg- 2 tabs daily. Hydrocodone-Acetaminophen Oral : 7.5 mg 4x a day. Levothyroxine Sodium Oral : 100 mcg daily. Lidoderm External : 1 patch on left elbow every 12 hours, prn. Meloxicam Oral : Tablet 15 mg, 1 tablet, prn. Omeprazole Oral : 20 mg daily. ProAir HFA Inhalation : 2 puffs 4x a day. Prozac Oral : 40mg daily. Relpax Oral : Tablet 40 mg, 1 tablet repeat in 2 hours if needed. Simvastatin Oral : Tablet 20 mg, 1 tablet at bedtime. Thyroxine *. Topamax Oral : 100 mg 2x a day. Prescription Medications: Zofran (orally disintegrating tablets) 4 mg: take 1 orally every 8 hours as needed for nausea and vomiting. Dispense ten (10). No refill. Substitution is permissible. Follow-up: Return to the emergency department as needed. Follow up with your doctor in three days. Reason for referral: recheck today's concerns. Summary of care provided to patient via paper. Screening today revealed the patient's blood pressure to be in the normal range. The patient should follow up with a primary care provider for blood pressure management. Understanding of the discharge instructions verbalized by patient. Follow-up with: Med Xiao MD, Urology, , [address] [facility], , [place], [id number] Follow up in one week. Reason for referral: recheck today's concerns. Summary of care provided to patient via paper. ADDITIONAL INFORMATION Abdominal Pain, Unknown Cause (Female) The exact cause of your abdominal (stomach) pain is not certain. This does not mean that this is something to worry about, or the right tests were not done. Everyone likes to know the exact cause of the problem, but sometimes with abdominal pain, there is no clear-cut cause, and this could be a good thing. The good news is that your symptoms can be treated, and you will feel better. Your condition does not seem serious now; however, sometimes the signs of a serious problem may take more time to appear. For this reason,it is important for you to watch for any new symptoms, problems,or worsening of your condition. Over the next few days, the abdominal pain may come and go, or be continuous. Other common symptoms can include nausea and vomiting. Sometimes it can be difficult to tell if you feel nauseous, you may just feel bad and not associate that feeling with nausea. Constipation, diarrhea, and a fever may go along with the pain. The pain may continue even if treated correctly over the following days. Depending on how things go, sometimes the cause can become clear and may require further or different treatment. Additional evaluations, medications, or tests may be needed. Home care Your health care provider may prescribe medications for pain, symptoms, or an infection. Follow the health care provider's instructions for taking these medications. General care Rest until your next exam. No strenuous activities. Try to find positions that ease discomfort. A small pillow placed on the abdomen may help relieve pain. Something warm on your abdomen (such as a heating pad) may help, but be careful not to burn yourself. Diet Do not force yourself to eat, especially if having cramps, vomiting, or diarrhea. Water is important so you do not get dehydrated. Soup may also be good. Sports drinks may also help, especially if they are not too acidic. Make sure you don't drink sugary drinks as this can make things worse. Take liquids in small amounts. Do not guzzle them. Caffeine sometimes makes the pain and cramping worse. Avoid dairy products if you have vomiting or diarrhea. Don't eat large amounts at a time. Wait a few minutes between bites. Eat a diet low in fiber (called a low-residue diet). Foods allowed include refined breads, white rice, fruit and vegetable juices without pulp, tender meats. These foods will pass more easily through the intestine. Avoid whole-grain foods, whole fruits and vegetables, meats, seeds and nuts, fried or fatty foods, dairy, alcohol and spicy foods until your symptoms go away. Follow-up care Follow up with your health care provider as instructed, or if your pain does not begin to improve in the next 24 hours. When to seek medical care Seek prompt medical care if any of the following occur: Pain gets worse or moves to the right lower abdomen New or worsening vomiting or diarrhea Swelling of the abdomen Unable to pass stool for more than three days Fever of 100.4F (38C) or higher, or as directed by your healthcare provider. Blood in vomit or bowel movements (dark red or black color) Jaundice (yellow color of eyes and skin) Weakness, dizziness Chest, arm, back, neck or jaw pain Unexpected vaginal bleeding or missed period Call 911 Call emergency services if any of the following occur: Trouble breathing Confusion Fainting or loss of consciousness Rapid heart rate Seizure Kidney Stone (W/ Colic) The sharp cramping pain and nausea/vomiting that you have is due to a small stone which has formed in the kidney and is now passing down a narrow tube (ureter) on its way to your bladder. Once it reaches your bladder, the pain will stop. The stone may pass in your urine stream in one piece. [The size may be 1/16" to 1/4" (1-6mm)]. Or, the stone may also break up into concepción fragments which you may not even notice. Once you have had a kidney stone, you are at risk for developing another one in the future. Home Care: Drink plenty of fluids (at least 8 to 10 glasses of water a day). Most stones will pass on their own, but may take from a few hours to a few days. Sometimes the stone is too large to pass by itself and special methods will have to be used to remove the stone. Each time you urinate, do so in a jar. Pour the urine from the jar through the strainer and into the toilet. Continue doing this until 24 hours after your pain stops. By then, if there was a kidney stone, it should pass from your bladder. Some stones dissolve into sand-like particles and pass right through the strainer. In that case, you wont ever see a stone. Save any stone that you find in the strainer and bring it to your doctor for analysis. It may be possible to prevent certain types of stones from forming. Therefore, it is important to know what kind of stone you have. Try to stay as active as possible since this will help the stone pass. Do not stay in bed unless your pain prevents you from getting up. You may notice a red, pink or brown color to your urine. This is normal while passing a kidney stone. Follow Up with your doctor or return to this facility if the pain lasts more than 48 hours. Get Prompt Medical Attention if any of the following occur: Pain that is not controlled by the medicine given Repeated vomiting or unable to keep down fluids Weakness, dizziness or fainting Fever of 100.4F (38C) or higher, or as directed by your healthcare provider Passage of solid red or brown urine (can't see through it) or urine with lots of blood clots Unable to pass urine for 8 hours and increasing bladder pressure Blood In The Urine Blood in the urine ("hematuria") has many possible causes. If it occurs after an injury (such as a car accident or fall), it is most often a sign of bruising to the kidney or bladder. Common medical causes of blood in the urine include urinary tract infection, kidney stone, inflammation, tumors, or certain other diseases of the kidney or bladder. Menstruation can cause blood to appear in the urine sample, although it is not coming from the urinary tract. If only a trace amount of blood is present, it will show up on the urine test, even though the urine may be yellow and not pink or red. This may occur with any of the above conditions, as well as heavy exercise or high fever. In this case, your doctor may want to repeat the urine test on another day. This will show if the blood is still present. If so, then other tests can be done to find out the cause. Home Care: If your urine does not appear bloody (pink, brown or red) then you do not need to restrict your activity in any way. If you can see blood in your urine, rest and avoid heavy exertion until your next exam. Do not use aspirin or anti-inflammatory medicine like ibuprofen (Motrin, Advil) or naproxen (Naprosyn, Aleve). These thin the blood and may increase bleeding. Follow Up with your doctor or as advised by our staff. If you were injured and had blood in your urine, you should have a repeat urine test in 1-2 days. Contact your doctor or return to this facility for this test. [NOTE: A radiologist will review any X-rays that were taken. We will notify you of any new findings that may affect your care.] Get Prompt Medical Attention if any of the following occur: Bright red blood or blood clots in the urine (if a new symptom) Weakness, dizziness or fainting New groin, abdominal or back pain Fever of 100.4F (38C) or higher, or as directed by your healthcare provider Repeated vomiting Bleeding from nose, gums or easy bruising Ondansetron Oral disintegrating tablet What is this medicine? ONDANSETRON (on CURTIS se hawa) is used to treat nausea and vomiting caused by chemotherapy. It is also used to prevent or treat nausea and vomiting after surgery. How should I use this medicine? These tablets are made to dissolve in the mouth. Do not try to push the tablet through the foil backing. With dry hands, peel away the foil backing and gently remove the tablet. Place the tablet in the mouth and allow it to dissolve, then swallow. While you may take these tablets with water, it is not necessary to do so. Talk to your target worker regarding the use of this medicine in children. Special care may be needed. What side effects may I notice from receiving this medicine? Side effects that you should report to your doctor or health regular senior care provider as soon as possible: allergic reactions like skin rash, itching or hives, swelling of the face, lips, or tongue breathing problems dizziness fast or irregular heartbeat feeling faint or lightheaded, falls fever and chills swelling of the hands and feet tightness in the chest Side effects that usually do not require medical attention (report to your doctor or health regular senior care provider if they continue or are bothersome): constipation or diarrhea headache What may interact with this medicine? Do not take this medicine with any of the following medications: -apomorphine -cisapride -dofetilide -dronedarone -pimozide -thioridazine -ziprasidone This medicine may also interact with the following medications: -carbamazepine -phenytoin -rifampicin -tramadol -other medicines that prolong the QT interval (cause an abnormal heart rhythm) What if I miss a dose? If you miss a dose, take it as soon as you can. If it is almost time for your next dose, take only that dose. Do not take double or extra doses. Where should I keep my medicine? Keep out of the reach of children. Store between 2 and 30 degrees C (36 and 86 degrees F). Throw away any unused medicine after the expiration date. What should I tell my health care provider before I take this medicine? They need to know if you have any of these conditions: heart disease history of irregular heartbeat liver disease low levels of magnesium or potassium in the blood an unusual or allergic reaction to ondansetron, granisetron, other medicines, foods, dyes, or preservatives or trying to get breast-feeding What should I watch for while using this medicine? Check with your doctor or health regular senior care provider as soon as you can if you have any sign of an allergic reaction. You have been given the following additional information: Abdominal Pain, Unknown Cause, (Female) Kidney Stone W/ Colic Hematuria Ondansetron Oral disintegrating tablet (Electronically signed by Cecil Guzman Dr. 02/19/2017 7:07)
--- NOTE | 2017-02-19 07:07 | ED MED RECONCILIATION SUMMARY ---
Patient: GURPREET MARTIN Medication Reconciliation Report [facility] VisitID: [id number] [place] [address] 47y, F Registration Date/Time: 02/17/2017 Weight: 122.4 kg Height/Length: 65 in. BMI: 45.0 ALLERGIES: ASA= "BRUISING", Sulfa Drugs The patient's Home Medications are listed below: CONTINUE TAKING THE FOLLOWING MEDICATIONS: ALPRAZolam Oral 0.5 mg, 3x a day Amerge Oral (2.5 mg) 1 tablet, may repeat in 4 hours x 1 Atenolol 50mg daily Claritin Oral Cyclobenzaprine HCl Oral (10 mg) 1 tablet Depakote Oral 250 mg, 2x a day Diclofenac Oral 75mg BID FLUoxetine HCl Oral 20 mg- 2 tabs daily Hydrocodone-Acetaminophen Oral 7.5 mg, 4x a day Levothyroxine Sodium Oral 100 mcg, daily Lidoderm External 1 patch on left elbow every 12 hours Meloxicam Oral (15 mg) 1 tablet Omeprazole Oral 20 mg, daily ProAir HFA Inhalation 2 puffs, 4x a day Prozac Oral 40mg daily Relpax Oral (40 mg) 1 tablet, repeat in 2 hours if needed Simvastatin Oral (20 mg) 1 tablet, at bedtime Thyroxine Topamax Oral 100 mg, 2x a day The source(s) of the original Home Medication information: patient The following Medications were given to the patient in the Emergency Department: IV NS IV Fluids bolus 1000 mL over 45 minute(s), administered: 02/17/2017 8:58:00 AM Toradol [IVP] IVP 30 mg, administered: 02/17/2017 8:58:00 AM Dilaudid [IVP] IVP 1 mg, administered: 02/17/2017 9:05:00 AM The following Medications were prescribed to the patient: Zofran (orally disintegrating tablets) 4 mg: take 1 orally every 8 hours as needed for nausea and vomiting. Dispense ten (10). No refill. Substitution is permissible. -- Cecil Guzman Dr.
--- NOTE | 2017-02-19 07:07 | ED MAR SUMMARY ---
..... Medication Administration Record [facility] [address] [place] [address] Patient: GURPREET MARTIN Visit ID: [id number] 47y, F Weight: 122.4 kg Height/Length: 65 in BMI: 45 ALLERGIES: ASA= "BRUISING", Sulfa Drugs Start 08:58 02/17/2017 Theron Caballreo R.N., Stop 09:50 02/17/2017 Theron Caballero R.N. Medication Administered: IV NS (SALINE), Dose: IV Fluids, Bolus: 1000 mL over 45 minute(s), Dispensed: 1000 mL bag, Site: #1 right hand. Medication Ordered: IV NS : initial bolus 1000 mL (1000 mL/hr), then none - (NOW). Given 08:58 02/17/2017 Theron Caballero R.N. Medication Administered: TORADOL [IVP], Dose: 30 mg IVP over 1 minute(s), Site: #1 right hand. Medication Ordered: Toradol IV 30 mg (NOW). Given 09:05 02/17/2017 Theron Caballero R.N. Medication Administered: DILAUDID [IVP] (HYDROMORPHONE HCL PF), Dose: 1 mg IVP over 1 minute(s), Site: #1 right hand. Medication Ordered: Dilaudid IV 1 mg (HIGH ALERT MEDICATION, NOW).
== END 2017-02-17 11:09 | disposition home or self-care (01) ==
LOC: ED SRH 08:24
DX: N23 Unspecified renal colic (principal); N13.30 Unspecified hydronephrosis; R31.0 Gross hematuria; I10 Essential (primary) hypertension; Z79.899 Other long term (current) drug therapy; Z88.2 Allergy status to sulfonamides; Z88.8 Allergy status to other drugs, medicaments and biological substances
CPT/HCPCS: 90004; 90100; 92235; 92530; 93070; 95059